=== PATIENT | female | born 1935 | race African-American/Black ===

== ENCOUNTER 2018-07-18 11:36 | Emergency (ER) | payer OTHER ==
[~2018-07-18] VITALS: Ht 165.1 cm; Wt 73.0 kg
[2018-07-18] MEDS ORDERED: SODIUM CHLORIDE 0.9% 1,000 ML IV ONE (12:24)
[2018-07-18 13:13] LABS: CHLORIDE 108 mEq/L (98-107)
[2018-07-18] MEDS ORDERED: MAGNESIUM CITRATE 300ML SOLUTION PO ONE (13:15)
[2018-07-18] MEDS ORDERED: LACTULOSE 20G/30ML UDC PO ONE (13:15)
[2018-07-18] MEDS ORDERED: MINERAL OIL 30ML BOTTLE PO ONE (13:15)
[2018-07-18 13:20] LABS: BASOPHILS % 1.3 % (0.0-2.0); HEMATOCRIT. 40.1 % (36.0-48.0); HEMOGLOBIN. 13.3 g/dL (12.0-16.0); LYMPHOCYTES % 36.6 % (20.0-50.0); MEAN CORPUSCULAR HEMOGLOBIN 32.5 pg (28.0-32.0); MEAN CORPUSCULAR VOLUME 98.2 fL (81.0-99.0); MEAN PLATELET VOLUME 9.8 fl (7.4-10.4); MONOCYTES % 11.8 % (2.0-8.0); NEUTROPHILS % 48.3 % (40.0-76.0); PLATELET 252 x1000/uL (130-400); RED BLOOD CELL COUNT 4.09 mill/uL (4.2-5.4); RED CELL DISTRIBUTION WIDTH 13.9 % (11.6-14.6)
[2018-07-18 14:41] LABS: CLARITY URINE CLEAR (CLEAR); COLOR URINE YELLOW (YELLOW); KETONES URINE NEGATIVE (NEGATIVE); LEUKOCYTE ESTERASE URINE 3+ (NEGATIVE); NITRITE URINE NEGATIVE (NEGATIVE); OCCULT BLOOD URINE NEGATIVE (NEGATIVE); PH URINE 6.5 (4.5-8.0); PROTEIN URINE NEGATIVE (NEGATIVE); SPECIFIC GRAVITY URINE 1.014 (1.005-1.030); UROBILINOGEN URINE 0.2 E.U./dL (0.2-1.0)
[2018-07-18] MEDS ORDERED: CEFTRIAXONE 1 G PREMIX 50 ML IV ONE (14:45)
[2018-07-18 16:43] VITALS: BP 144/72
== END 2018-07-18 16:44 | disposition short-term general hospital (02) ==
LOC: ER 16:24
DX: R10.9 Unspecified abdominal pain (principal); N30.00 Acute cystitis without hematuria; Z90.5 Acquired absence of kidney
CPT/HCPCS: 36415; 74176; 80053; 81003; 85025; 93005; 96365; 99285; J0696; J7030

== ENCOUNTER 2020-04-01 11:20 | Inpatient (IN) | payer OTHER ==
[~2020-04-01] VITALS: Ht 170.2 cm; Wt 86.7 kg
[2020-04-01] MEDS ORDERED: SODIUM CHLORIDE 0.9% 500 ML IV ONE (11:42)
[2020-04-01 11:56] LABS: BASOPHILS % 0.9 % (0.0-2.0); EOSINOPHILS % 1.5 % (0.0-5.0); HEMATOCRIT. 37.2 % (36.0-48.0); HEMOGLOBIN. 12.1 g/dL (12.0-16.0); LYMPHOCYTES % 53.8 % (20.0-50.0); MEAN CORPUSCULAR HEMOGLOBIN 32.6 pg (28.0-32.0); MEAN CORPUSCULAR VOLUME 100.7 fL (81.0-99.0); MEAN PLATELET VOLUME 8.4 fl (7.4-10.4); MONOCYTES % 11.1 % (2.0-8.0); NEUTROPHILS % 32.7 % (40.0-76.0); PLATELET 273 x1000/uL (130-400); RED BLOOD CELL COUNT 3.69 mill/uL (4.2-5.4); RED CELL DISTRIBUTION WIDTH 13.7 % (11.6-14.6)
[2020-04-01 12:02] LABS: CHLORIDE 111 mEq/L (98-107)
[2020-04-01] MEDS ORDERED: LORAZEPAM 2MG/ML CPJ ONE ×2 (12:45→12:46)
[2020-04-01] MEDS ORDERED: LORAZEPAM 2MG/ML CPJ IV ONE ×2 (12:45)
[2020-04-01] MEDS ORDERED: LEVETIRACETAM 1000MG/100ML 100 ML IV ONE (13:00)
[2020-04-01 13:29] LABS: INR 2.4; PROTHROMBIN TIME 24.6 sec (9.6-11.0)
[2020-04-01] MEDS ORDERED: GUAIFENESIN 200MG/10ML SUGAR FREE UDC PO PRN (18:45)
[2020-04-01] MEDS ORDERED: DOCUSATE SODIUM 100MG CAPSULE PO PRN (18:45)
[2020-04-01] MEDS ORDERED: NA PHOS,M-B/NA PHOS,DI-BA ENEMA 118ML PR PRN (18:45)
[2020-04-01] MEDS ORDERED: ONDANSETRON HCL 4MG/2ML INJ IV PRN (18:45)
[2020-04-01] MEDS ORDERED: ACETAMINOPHEN 650MG SUPP PR PRN ×2 (18:45)
[2020-04-01] MEDS ORDERED: MAGNESIUM/ALUMINUM HYDROXIDE/SIMETHICONE 30ML UDC PO PRN (18:45)
[2020-04-01] MEDS ORDERED: CLONIDINE 0.1MG TABLET PO PRN (18:45)
[2020-04-01] MEDS ORDERED: LEVETIRACETAM 500MG PREMIX 100 ML IV SCH (21:00)
[2020-04-01] MEDS: SODIUM CHLORIDE 0.45% 1,000 ML IV SCH (21:31)
[2020-04-01 23:09] LABS: CLARITY URINE CLEAR (CLEAR); COLOR URINE YELLOW (YELLOW); KETONES URINE 1+ (NEGATIVE); LEUKOCYTE ESTERASE URINE NEGATIVE (NEGATIVE); NITRITE URINE NEGATIVE (NEGATIVE); OCCULT BLOOD URINE NEGATIVE (NEGATIVE); PH URINE 6.5 (4.5-8.0); PROTEIN URINE NEGATIVE (NEGATIVE); SPECIFIC GRAVITY URINE 1.012 (1.005-1.030); UROBILINOGEN URINE 0.2 E.U./dL (0.2-1.0)
[2020-04-01 23:17] LABS: *AMPHETAMINES SCREEN URINE NEGATIVE (NEGATIVE); *BARBITURATES SCREEN URINE NEGATIVE (NEGATIVE); *BENZODIAZEPINES SCREEN URINE NEGATIVE (NEGATIVE); *COCAINE SCREEN URINE NEGATIVE (NEGATIVE)
[2020-04-01 23:18] LABS: CANNABINOID URINE SCREEN NEGATIVE (NEGATIVE); METHADONE URINE SCREEN NEGATIVE (NEGATIVE); OPIATES URINE SCREEN NEGATIVE (NEGATIVE); PHENCYCLIDINE URINE SCREEN NEGATIVE (NEGATIVE)
[2020-04-02] VITALS (14 sets, daily range): BP systolic 108–140; BP diastolic 54–84
[2020-04-02 06:24] LABS: EOSINOPHILS % 0.8 % (0.0-5.0); HEMATOCRIT. 37.8 % (36.0-48.0); HEMOGLOBIN. 12.3 g/dL (12.0-16.0); LYMPHOCYTES % 26.5 % (20.0-50.0); MEAN CORPUSCULAR HEMOGLOBIN 32.3 pg (28.0-32.0); MEAN CORPUSCULAR VOLUME 99.2 fL (81.0-99.0); MONOCYTES % 11.6 % (2.0-8.0); NEUTROPHILS % 60.1 % (40.0-76.0); PLATELET 216 x1000/uL (130-400); RED BLOOD CELL COUNT 3.82 mill/uL (4.2-5.4); RED CELL DISTRIBUTION WIDTH 13.6 % (11.6-14.6)
[2020-04-02 06:54] LABS: CHLORIDE 112 mEq/L (98-107)
[2020-04-02 07:00] LABS: LDL CHOLESTEROL 110 mg/dL (5-100)
[2020-04-02 07:02] LABS: HDL CHOLESTEROL 65 mg/dL (40-59)
[2020-04-02] MEDS ORDERED: LEVETIRACETAM 500MG PREMIX 100 ML IV SCH (09:00)
[2020-04-02] MEDS ORDERED: ENOXAPARIN 30MG/0.3ML SYR SUBCUT SCH (11:00)
[2020-04-02] MEDS: SODIUM CHLORIDE 0.45% 1,000 ML IV SCH (14:40)
== END 2020-04-02 21:02 | disposition short-term general hospital (02) | DRG 101 ==
LOC: ER 11:26 → 3WST 14:38 → EDBEDREQ 14:47 → EDBEDREQSVC 18:18 → ENRESERV 22:27 → 3WST 04-02 01:01
PROVIDERS: ADMIT Family Medicine; ATTEND Family Medicine
DX: G40.901 Epilepsy, unspecified, not intractable, with status epilepticus (principal); E87.2 Acidosis; D68.9 Coagulation defect, unspecified; E87.6 Hypokalemia; F03.90 Unspecified dementia, unspecified severity, without behavioral disturbance, psychotic disturbance, mood disturbance, and anxiety; E78.5 Hyperlipidemia, unspecified; R73.9 Hyperglycemia, unspecified; Z03.818 Encounter for observation for suspected exposure to other biological agents ruled out
CPT/HCPCS: 36415; 71045; 80053; 80061; 80305; 81003; 84484; 85025; 93005; 96365; 99291; J1650; J1953; J2060; J7030; U0003-CS